=== PATIENT | male | born 1950 | race Caucasian/White ===

== ENCOUNTER 2017-06-05 12:08 | Inpatient (IN) | payer OTHER ==
[~2017-06-05] VITALS: Ht 182.9 cm; Wt 95.3 kg
--- NOTE | ~2017-06-05 | HC ---
[facility] [place] [address] CONSULTATION Name: MIREILLE LEES Room #: 402-P [facility] IN .R.#: [id number] Admission: 06/05/17 Attend Phys: Hilda Hernandez Discharge: 06/07/17 Date of : 52 Report #: [id number] THIS REPORT FOR: //name// CC: BENY physician/PCP Hilda Hernandez DATE OF SERVICE: 06/05/2017 DATE OF ADMISSION: 06/05/2017 DATE OF CONSULTATION: 06/05/2017. I have been asked to evaluate this 67-year-old male who presented to Emergency Department with chief complaint of abdominal pain. HISTORY OF PRESENT ILLNESS: The patient's pain began around 02:00 this a.m. when he was coming home from work at [employer]. His pain was located in the right upper quadrant as well as the right lower quadrant and reported that his last bowel movement was approximately 2 days ago. He normally has stools on a daily basis. He denied any melena or hematochezia. The pain seems to radiate to his right infrascapular region to some degree. PAST MEDICAL HISTORY: Is significant for hypertension, renolithiasis. PAST SURGICAL HISTORY: He has had surgical history of laminectomy in 1983. MEDICATIONS: Losartan daily basis for his hypertension. ALLERGIES: No known drug allergies. 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 REVIEW OF SYSTEMS: A 10-point review of systems essentially noncontributory except for recent change in gastrointestinal function with the abdominal pain and obstipation. PHYSICAL EXAMINATION: GENERAL: Reveals a man who is alert, cooperative. IV is infusing. VITAL SIGNS: Within normal limits. He is afebrile. HEENT: No scleral icterus is noted. CARDIOVASCULAR: Regular rate and rhythm. LUNGS: Clear to bases bilaterally. ABDOMEN: Obese, mild tenderness in right upper quadrant. No palpable mass. EXTREMITIES: Unremarkable. [facility] [address] [place] [address] CONSULTATION Name: HARILuis AlbertoMIREILLE Room #: 402-P [facility] IN M.R.#: [id number] Admission: 06/05/17 Attend Phys: Hilda Hernandez Discharge: 06/07/17 Date of : 52 Report #: [id number] NEUROLOGIC: He is oriented x 3 with bilateral motor symmetry. DIAGNOSTIC IMPRESSION: The patient has slightly acute cholecystitis with cholelithiasis. Recommend ultrasound of the gallbladder and will proceed with laparoscopic cholecystectomy and intraoperative cholangiogram as indicated. Thank you for allowing us to participate in his care. By: 1445 51 Tony Quiroga MD, FACS /nt
--- NOTE | ~2017-06-05 | O ---
[facility] [place] [address] OPERATIVE REPORT Name: MIREILLE LEES Room #: 402-P [facility] IN M.R.#: [id number] Admission: 06/05/17 Attend Phys: Hilda Hernandez Discharge: 06/07/17 Date of : 52 Report #: [id number] THIS REPORT FOR: //name// CC: BENY physician/PCP Hilda Hernandez DATE OF SERVICE: 06/06/2017 PREOPERATIVE DIAGNOSES: 1. Acute cholecystitis with cholelithiasis. 2. Incarcerated umbilical hernia. POSTOPERATIVE DIAGNOSES: 1. Acute cholecystitis with cholelithiasis. 2. Incarcerated umbilical hernia. OPERATIVE PROCEDURE: 1. Laparoscopic cholecystectomy with intraoperative cholangiogram (IOC). 2. Primary repair of incarcerated umbilical hernia. SURGEON: Tony Quiroga MD. SENIOR SOFTWARE ENGINEER: Elina Luna APRN. SECOND TRANSPORTER RADIOLOGY: Adalberto Izaguirre MS3. INDICATIONS: A 67-year-old male with approximately 3 days of right upper quadrant pain associated with nausea and vomiting. Ultrasound is positive for cholelithiasis. Liver function tests are essentially within normal limits. The patient has tenderness in right upper quadrant. OPERATIVE PROCEDURE: The patient had thorough discussion of the procedure, benefits and risks. He gave informed consent to proceed. He was brought to the operating room suite and had satisfactory induction of general endotracheal anesthesia. The patient's entire abdomen was prepped and draped in usual sterile procedure with DuraPrep solution. After draping was completed, an appropriate timeout was then performed. 0.5% plain Naropin was utilized at the umbilicus and open cutdown technique was performed. A small incision was made in the fascia. The 5 mm trocar was introduced. Pneumoperitoneum was established. An upper 5 mm trocar port was then placed. The 5 mm trocar at the umbilicus was converted to a 12 mm Lina with the balloon. Two additional right lateral subcostal and right lateral 5 mm trocar ports were then placed under direct vision. The gallbladder had some exudate on the surface. The omentum was tightly adherent to it. The Topel needle was utilized to aspirate approximately 70 mL of a dark brown bile. Some of this was sent for aerobic and anaerobic cultures. The gallbladder was then grasped and retracted cephalad and [facility] [address] [place] [address] OPERATIVE REPORT Name: MIREILLE LEES Room #: 402-P [facility] IN [facility].#: [id number] Admission: 06/05/17 Attend Phys: Hilda Hernandez Discharge: 06/07/17 Date of : 52 Report #: [id number] laterally. The cystic duct triangle was clearly delineated. The cystic duct was milked in a retrograde manner. A cystotomy was performed. The taut catheter was inserted. An intraoperative cholangiogram demonstrated free flow of contrast into the duodenum without filling defect. The proximal hepatic bile ducts, common hepatic duct and a right and left hepatic ducts were well visualized. The taut catheter was removed. The cystic duct was then triply ligated and divided with the Sonicision. The cystic artery was identified, doubly ligated and divided with Sonicision. The gallbladder was resected from the fossa without difficulty. It was then placed into an Endobag and removed from peritoneal cavity. Attention was turned back to the gallbladder fossa. Hemostasis was complete. Chris was placed and sprayed into the bed of the gallbladder. A 15-Chilean YULI drain was brought out through the far lateral port site. The upper midline 5 mm trocar was maintained. The umbilical hernia had been entered at the time of incision through the hernia sac and the incarcerated omentum had been reduced. Some of the hernia sac and contents were sent for histologic evaluation. Under direct open exposure, the fascial approximation with #1 PDS sutures was performed, 5 of these were placed. These were then ligated in place. Inspection with the 5 mm upper midline trocar port and the camera demonstrated satisfactory placement. No bowel was adherent. Photographs were taken and made part of the medical record. The pneumoperitoneum was then deflated and the upper 5 mm trocar port was removed. The skin margins were approximated with subcuticular 4-0 Monocryl and rachel. The skin margins at the umbilical hernia repair were approximated with rachel. The right upper quadrant drain was sewn in place with 2-0 nylon. The estimated blood loss approximately 25 mL. The patient tolerated the procedure well and he returned to recovery room in stable and satisfactory condition. <ELECTRONICALLY SIGNED> By: Tony Quiroga MD, FACS 06/11/17 0948 1127 1247 Tony Quiroga MD, FACS /nt
--- NOTE | ~2017-06-05 | S ---
[facility] [place] [address] SURGICAL PATH RPT PROCEDURE Name: MIREILLE WU Jesus Manuel Room #: 402-P DIS IN M.R.#: [id number] Admission: 06/05/17 Date of : 52 Discharge: 06/07/17 Report #: [id number] Path Case #: [id number] PATHOLOGY REPORT COLLECTION DATE: 06/06/2017 RECEIVED DATE: 06/06/2017 SUBMITTING PHYS: Dr. Tony Quiroga OTHER PHYS: Dr. Hilda Hernandez SPECIMEN(S) RECEIVED: A.Incarcerated hernia contents B.Gallbladder * * * * * * * * * * * * FINAL DIAGNOSIS: A. "Incarcerated hernia contents", hernia repair: - Vascularized fibroadipose connective tissue consistent with hernia sac. B. "Gallbladder", cholecystectomy: - Acute necrotizing cholecystitis. - Cholelithiasis. (CLW:cristina; 06/07/2017) PATHOLOGIST: Denisha Huber M.D. REPORT ELECTRONICALLY SIGNED BY: Denisha Huber M.D. DATE/TIME: 06/07/2017 20:29 * * * * * * * * * * * * GROSS PATHOLOGY: A. Received in formalin labeled "Mireille Wu, incarcerated hernia contents," are multiple pieces of lobulated fibroadipose tissue measuring 3.2 x 2.5 x 0.4 cm in aggregate dimensions. Sectioning reveals homogeneous, bright yellow cut surfaces. Clinical Research Specialist sections are submitted in cassette A1. B. Received in formalin labeled "Mireille Wu, gallbladder," is a 8.5 x 4.2 x 1.8 cm, previously opened gallbladder with smooth, shiny, dark, pinkdark yellow serosal surfaces. The gallbladder is opened to show a greengraydark, pink, spongy, bile-stained mucosa and an average wall thickness of 0.3 cm. Calculi are present and no masses are noted grossly. Clinical Research Specialist sections from the body and fundus are submitted along with the proximal margin in cassette B1. ([facility]; 06/06/2017) CLINICAL HISTORY: Cholecystitis, cholelithiasis [address] [address] SURGICAL PATH RPT PROCEDURE Name: MIREILLE WU Room #: 402-P DIS IN M.R.#: [id number] Admission: 06/05/17 Date of : 52 Discharge: 06/07/17 Report #: [id number] Path Case #: [id number] INITIAL CPT CODE(S): A; 28512 B; 30729 Professional services performed by [facility] at [address], [place] [address] Technical services performed by [facility] at [address] [place] [address], [facility] [address], [place] [address]. [facility] [address] [place] [address] PHONE: [phone] DIRECTOR: Gurwinder Alex M.D. * * * END OF REPORT * * *
--- NOTE | ~2017-06-05 | EKG ---
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 : 1950 Requested By: Sindy Mckeon Order Number: [id number] MD: Jarrett Martinez Measurements Intervals [place] Rate: 83 P: 65 ID: 162 QRS: 7 QRSD: 99 T: 94 QT: 410 QTc: 482 Interpretive Statements Sinus rhythm Multiple premature complexes, vent & supraven Abnormal T, consider ischemia, lateral leads No previous ECG available for comparison Electronically Signed On 06-10-2017 21:40:18 CDT by Jarrett Martinez [email or web address] <ELECTRONICALLY SIGNED> By: Jarrett Martinez MD 06/10/17 2140 1224 1224 Jarrett Martinez MD /CATHERINE
[2017-06-05 12:11] VITALS: BP 139/111
[2017-06-05] MEDS ORDERED: COZAAR 25 MG TA25 M1 PO (12:28)
[2017-06-05 12:55] LABS: HEMOGLOBIN 17.5 gm/dL (14.0-18.0); MCH 29.4 pg (26.0-34.0); MCHC 33.6 g/dL (28.0-37.0); MCV 87.5 fL (80.0-100.0); PLATELET COUNT 247 thou/uL (150-400); RBC 5.94 mil/uL (4.50-6.00); RDW 14.4 % (10.5-14.5); WBC 17.5 thou/uL (4.0-11.0)
[2017-06-05 12:58] LABS: MANUAL DIFF YES
[2017-06-05 13:04] LABS: ANION GAP 10 mmol/L (7-16); BUN 18 mg/dL (7-18); CHLORIDE 99 mmol/L (98-107); CO2 28 mmol/L (21-32); CREATININE 1.2 mg/dL (0.7-1.3); GLUCOSE 110 mg/dL (74-106); POTASSIUM 3.9 mmol/L (3.5-5.1); SODIUM 137 mmol/L (136-145)
[2017-06-05 13:15] LABS: ABSOLUTE NEUTROPHILS 15.1 thou/uL (1.4-8.2); ALBUMIN 4.2 g/dL (3.4-5.0); ALKALINE PHOSPHATASE 83 U/L (46-116); DIRECT BILIRUBIN < 0.1 mg/dL (<0.1-0.3); PLATELET ESTIMATE NORMAL; SGOT 43 U/L (15-37); SGPT 34 U/L (30-65); TOTAL BILIRUBIN 0.6 mg/dL (<0.1-1.0); TOTAL CELL COUNT 100; TOTAL PROTEIN 8.7 g/dL (6.4-8.2); TROPONIN-I < 0.04 ng/mL (<0.04-0.07)
[2017-06-05 14:33] VITALS: BP 139/111
[2017-06-05 15:11] VITALS: BP 138/95
[2017-06-05 15:19] VITALS: BP 153/77
[2017-06-05 20:00] VITALS: BP 181/108
[2017-06-06] VITALS (8 sets, daily range): BP systolic 112–141; BP diastolic 57–75
[2017-06-06 05:53] LABS: HEMATOCRIT 47.4 % (42.0-52.0); MCH 29.5 pg (26.0-34.0); MCHC 33.8 g/dL (28.0-37.0); MCV 87.2 fL (80.0-100.0); RBC 5.43 mil/uL (4.50-6.00); RDW 14.1 % (10.5-14.5); WBC 14.3 thou/uL (4.0-11.0)
[2017-06-06 06:06] LABS: ALBUMIN 3.2 g/dL (3.4-5.0); CALCIUM 8.3 mg/dL (8.5-10.1); CREATININE 0.9 mg/dL (0.7-1.3); TOTAL BILIRUBIN 1.1 mg/dL (<0.1-1.0); TOTAL PROTEIN 7.2 g/dL (6.4-8.2)
[2017-06-07] VITALS: BP 109/64
[2017-06-07 04:05] LABS: ALBUMIN 2.5 g/dL (3.4-5.0); CALCIUM 7.3 mg/dL (8.5-10.1); CREATININE 1.6 mg/dL (0.7-1.3); POTASSIUM 3.6 mmol/L (3.5-5.1); TOTAL BILIRUBIN 0.6 mg/dL (<0.1-1.0); TOTAL PROTEIN 6.3 g/dL (6.4-8.2)
[2017-06-07 04:34] VITALS: BP 111/45
[2017-06-07 07:05] VITALS: BP 131/79
[2017-06-07] MEDS ORDERED: TRAMADOL 50 MG50 MG PO (09:40)
[2017-06-07 12:59] VITALS: BP 131/79
== END 2017-06-07 15:16 | disposition home or self-care (01) | DRG 414 ==
LOC: ER 12:08 → EROBS 14:08 → 4N 14:08
PROVIDERS: Emergency Medicine; Surgery
PROC: 0FJ44ZZ Inspection of Gallbladder, Percutaneous Endoscopic Approach (ICD-10-PCS; principal; 2017-06-06)
PROC: BF121ZZ Fluoroscopy of Gallbladder using Low Osmolar Contrast (ICD-10-PCS; principal; 2017-06-06)
PROC: 0FT40ZZ Resection of Gallbladder, Open Approach (ICD-10-PCS; principal; 2017-06-06)
PROC: 0WQF4ZZ Repair Abdominal Wall, Percutaneous Endoscopic Approach (ICD-10-PCS; principal; 2017-06-06)
DX: K80.00 Calculus of gallbladder with acute cholecystitis without obstruction (principal); E43 Unspecified severe protein-calorie malnutrition; I10 Essential (primary) hypertension; F17.210 Nicotine dependence, cigarettes, uncomplicated; D72.829 Elevated white blood cell count, unspecified; Z60.2 Problems related to living alone; K40.90 Unilateral inguinal hernia, without obstruction or gangrene, not specified as recurrent; K42.9 Umbilical hernia without obstruction or gangrene; F12.90 Cannabis use, unspecified, uncomplicated; Z87.442 Personal history of urinary calculi; Z79.899 Other long term (current) drug therapy
CPT/HCPCS: 10091; 50010; 50101; 50249; 50411; 50555; 50900; 50962; 51412; 51489; 51975; 52265; 52287; 53307; 53314; 54022; 54118; 55245; 55317; 56462; 56525; 56526; 56527; 56970; 62110; 62900; 70005

== ENCOUNTER → 2018-05-20 | Outpatient (CLI) | payer OTHER ==
[~2018-05-20] MED LIST: COZAAR 25 MG TA25 M1 PO; TRAMADOL 50 MG50 MG PO
== END ==
LOC: RAD 11:30
DX: J98.11 Atelectasis (principal)

== ENCOUNTER 2018-08-08 05:23 | Day surgery (SDC) | payer OTHER ==
[2018-08-05 10:32] LABS: HEMATOCRIT 47.7 % (42.0-52.0); HEMOGLOBIN 16.2 gm/dL (14.0-18.0); MCH 29.7 pg (26.0-34.0); MCV 87.2 fL (80.0-100.0); RBC 5.47 mil/uL (4.50-6.00); RDW 14.3 % (10.5-14.5); WBC 8.3 thou/uL (4.0-11.0)
[2018-08-05 10:47] LABS: ALBUMIN 3.6 g/dL (3.4-5.0); CALCIUM 8.5 mg/dL (8.5-10.1); POTASSIUM 4.2 mmol/L (3.5-5.1); TOTAL BILIRUBIN 0.5 mg/dL (<0.1-1.0); TOTAL PROTEIN 7.1 g/dL (6.4-8.2)
[~2018-08-08] VITALS: Ht 188 cm; Wt 99.8 kg
--- NOTE | ~2018-08-08 | O ---
[facility] [place] [address] OPERATIVE REPORT Name: MIREILLE LEES Room #: [facility]#: [id number] Admission: 08/08/18 Attend Phys: Mich [place] MD, F Discharge: 08/08/18 Date of : 51 Report #: [id number] THIS REPORT FOR: //name// CC: Je Mims MD [facility] Armando [place] MD DATE OF SERVICE: 08/08/2018 SURGEON: Mich [place] MD. STUDENT ACCOUNTS MANAGER: BONY Burt. PREOPERATIVE DIAGNOSES: 1. Bilateral inguinal hernias. 2. Recurrent umbilical hernia. 3. Chronic obstructive pulmonary disease. 4. Hypertension. 5. Hyperlipidemia. POSTOPERATIVE DIAGNOSES: 1. Left pantaloon inguinal hernia, right indirect inguinal hernia.. 2. Incarcerated umbilical hernia. 3. Chronic obstructive pulmonary disease. 4. Hypertension. 5. Hyperlipidemia. PROCEDURE: 1. Laparoscopic totally extraperitoneal repair of left inguinal hernia with ProGrip mesh. 2. Laparoscopic totally extraperitoneal repair of right inguinal hernia with ProGrip mesh. 3. Open repair of recurrent incarcerated umbilical hernia. ANESTHESIA: General endotracheal anesthesia and local anesthetic. ESTIMATED BLOOD LOSS: 5 mL. SPECIMEN: None. COMPLICATIONS: None appreciated. INDICATIONS FOR PROCEDURE: This is a 68-year-old male patient of Dr. Armando Baltazar, who has had a left groin bulge over the past 2 or more years, increasing in size. The patient has gained weight and notices this furthermore, [facility] [address] [place] [address] OPERATIVE REPORT Name: MIREILLE LEES Room #: DEP [facility].#: [id number] Admission: 08/08/18 Attend Phys: Mich [place] MD, F Discharge: 08/08/18 Date of : 51 Report #: [id number] after having undergone a cholecystectomy. He denies change in his bowel habit. His hernia was laparoscopically visualized in 05/2017 when he underwent laparoscopic cholecystectomy and a primary repair of his umbilical hernia. The patient does have hypertension and COPD. He underwent a cardiac catheterization by Dr. Paulo Mims, but did not require intervention. He also had bilateral lower extremity stents placed by Dr. Je Restrepo in early May and has been on Plavix since that time. The patient presents now for laparoscopic bilateral inguinal hernia repair and repair of his recurrent umbilical hernia. DESCRIPTION OF PROCEDURE IN DETAIL: After the risks, benefits and expectations of the operation were discussed in detail with the patient, informed consent was obtained. The patient was identified in the preoperative holding area. He was given IV antibiotics as documented in the chart in line with SCIP metrics. The patient was then taken to the operating room, and he was placed in the supine position. SCDs were placed on the patient's bilateral lower extremities and pneumatic compression was initiated. The patient was then given IV sedation, and he was intubated without incident. His abdomen, groins and genitalia were prepped and draped in the standard sterile fashion. A time-out was performed to identify the correct patient and procedure. Local anesthetic was infiltrated into the skin and subcutaneous tissue infraumbilically where a curvilinear incision was made with #15 blade scalpel. Dissection was carried down to the left anterior rectus sheath fascia. A small transverse fascial opening was created. The underlying left rectus abdominis muscle was then swept laterally, and the Spacemaker port was placed within the preperitoneal space. The obturator was then removed and the Spacemaker balloon was inflated under direct visualization with a 0-degree angled laparoscope. The balloon was then deflated and removed. The cuff was inflated. The 10 mm 30-degree angled laparoscope was inserted after insufflating the preperitoneal space to 15 mmHg with carbon dioxide. The patient was placed in the Trendelenburg position. A lower midline 5 mm ports x 2 were placed under direct visualization after local anesthetic was infiltrated into the skin and subcutaneous tissue and appropriately sized transverse incisions were made. Exploration of the left preperitoneal space was undertaken first. The landmarks were identified including the inferior epigastric vessels and spermatic cord. The cord was protected throughout the operation. There was brisk bleeding from the inferior epigastric vessels that required Hemoclips for hemostasis. After ensuring this, the peritoneum was dissected off the lateral abdominal and pelvic side wall with appropriate traction and electrocautery. Dissection was then carried out to identify the hernia sac extending up into the indirect inguinal defect. This was dissected out of the defect without difficulty. Tissue also extended up into a direct defect. The tissue was reduced from the defect to identify both the direct and indirect defects (pantaloon hernia). The pubic tubercle had been dissected as well. The ProGrip mesh was then tailored on the backtable, rolled and placed within the preperitoneal space through the [facility] [address] [place] [address] OPERATIVE REPORT Name: MIREILLE LEES [facility] [id number] Admission: 08/08/18 Attend Phys: [place] MD, F Discharge: 08/08/18 Date of : 52 Report #: [id number] Spacemaker port. The mesh was unrolled in a scroll down fashion with the adherent side against the abdominal wall. There was good coverage of both defects with good fascial overlap and good medialization of the mesh whereby the mesh extended to the midline. There was minimal rippling of the mesh. Exploration of the right preperitoneal space was undertaken next in a similar fashion. The inferior epigastric vessels and spermatic cord were identified. The cord was isolated and protected. The peritoneum was dissected off the lateral abdominal and pelvic side wall with electrocautery. A rent was created in the very thin peritoneum, and the Hemoclips were placed for closure to protect the bowels from the mesh that would be placed. The peritoneum/hernia sac extended up into an indirect defect. This was dissected free while protecting the spermatic cord. After fully reducing the contents of the indirect inguinal hernia, the ProGrip mesh was tailored on the backtable, then rolled and placed within the preperitoneal space through the Spacemaker port. The mesh was unrolled in a scroll down fashion with the adherent side against the abdominal wall and good coverage of the defect. There was no significant rippling of the mesh. The patient did require placement of a right abdominal 5 mm Visiport intraoperatively to decrease the intraperitoneal insufflation that lessened visualization until after its placement. More working space and better visualization allowed for good placement of the mesh. The preperitoneal space was then desufflated, and the ports were removed. The abdominal cavity was desufflated, and the 5 mm port was removed after appropriate desufflation. Repair of the incarcerated recurrent umbilical hernia was undertaken next. The umbilical stalk was dissected off the fascia. The defect was then evident. The preperitoneal fat was incarcerated within the defect with no bowel involvement. The content was reduced, and the fascial edges were closed with [id number] 0 PDS sutures x 2. [id number] 0 PDS sutures x 2 were also used to close the left anterior rectus sheath fascia. Local anesthetic was infiltrated into the tissue. The wounds were then closed with interrupted subcuticular 4-0 Monocryl sutures and Dermabond. The patient tolerated the procedure well. He was awakened, extubated and taken to recovery room in stable condition with no apparent intraoperative complications. <ELECTRONICALLY SIGNED> By: [place] MD, FACS 08/11/18 1017 0942 1052 [place] MD, FACS /nt
[~2018-08-08 05:23] MED LIST changes: +ASPIR 8181 MG PO; +AVAPRO75 MG PO; +LIPITOR 20 MG T20 M1 PO; +PLAVIX 75 MG TA75 M1 PO; +SPIRIVA INH
[2018-08-08 06:59] VITALS: BP 173/99
[2018-08-08] MEDS ORDERED: NORCO 5-325 TA1 EACH PO (09:27)
[2018-08-08] MEDS ORDERED: SENNA-S TABLET1 EACH PO (09:27)
[2018-08-08] MEDS ORDERED: NEURONTIN 300M300 M2 PO (09:27)
[2018-08-08 09:41] VITALS: BP 173/99
== END 2018-08-08 10:40 | disposition home or self-care (01) ==
LOC: TBA 05:23 → OR 05:23
PROVIDERS: Surgery
DX: K40.20 Bilateral inguinal hernia, without obstruction or gangrene, not specified as recurrent (principal); K42.0 Umbilical hernia with obstruction, without gangrene; I10 Essential (primary) hypertension; J44.9 Chronic obstructive pulmonary disease, unspecified; E78.5 Hyperlipidemia, unspecified; I73.9 Peripheral vascular disease, unspecified; F17.210 Nicotine dependence, cigarettes, uncomplicated; Z98.890 Other specified postprocedural states; Z79.899 Other long term (current) drug therapy; Z87.442 Personal history of urinary calculi; Z88.0 Allergy status to penicillin; Z87.19 Personal history of other diseases of the digestive system; Z88.8 Allergy status to other drugs, medicaments and biological substances; Z79.82 Long term (current) use of aspirin
CPT/HCPCS: 50010; 50101; 50249; 50411; 50455; 50555; 50944; 51824; 52265; 52266; 54118; 54169; 55245; 56525; 56526; 62110; 62900; 70005

== ENCOUNTER 2020-11-11 10:44 | Emergency (ER) | payer OTHER ==
[~2020-11-11] VITALS: Ht 185.4 cm; Wt 99.8 kg
[~2020-11-11 10:44] MED LIST changes: +NEURONTIN 300M300 M2 PO; +NORCO 5-325 TA1 EACH PO; +SENNA-S TABLET1 EACH PO
[2020-11-11] MEDS ORDERED: FLEXERIL PO (11:49)
[2020-11-11 12:10] VITALS: BP 162/90
== END 2020-11-11 12:10 | disposition home or self-care (01) ==
LOC: ER 10:44
DX: M54.6 Pain in thoracic spine (principal); F17.210 Nicotine dependence, cigarettes, uncomplicated; I10 Essential (primary) hypertension; Z88.0 Allergy status to penicillin; Z79.899 Other long term (current) drug therapy; Z79.82 Long term (current) use of aspirin; Z87.442 Personal history of urinary calculi

== ENCOUNTER → 2021-01-07 | Outpatient (CLI) | payer OTHER ==
[~2021-01-07] MED LIST changes: +FLEXERIL PO
== END ==
LOC: MRI 11-26 10:24
PROVIDERS: ATTEND Family Medicine
DX: M47.22 Other spondylosis with radiculopathy, cervical region (principal); M25.78 Osteophyte, vertebrae; M48.02 Spinal stenosis, cervical region; M53.82 Other specified dorsopathies, cervical region

== ENCOUNTER 2021-03-03 08:35 | Emergency (ER) | payer OTHER ==
[~2021-03-03] VITALS: Ht 185.4 cm; Wt 99.8 kg
[2021-03-03 08:42] VITALS: BP 102/75
[2021-03-03] MEDS ORDERED: TRAMADOL 50 MG50 MG PO ×2 (08:55→09:07)
== END 2021-03-03 09:22 | disposition home or self-care (01) ==
LOC: ER 08:35
DX: G89.18 Other acute postprocedural pain (principal); I10 Essential (primary) hypertension; F17.210 Nicotine dependence, cigarettes, uncomplicated; Z88.0 Allergy status to penicillin; Z79.82 Long term (current) use of aspirin; Z79.899 Other long term (current) drug therapy; Z87.442 Personal history of urinary calculi; Z90.89 Acquired absence of other organs

== ENCOUNTER 2021-03-17 13:11 | Emergency (ER) | payer OTHER ==
[~2021-03-17] VITALS: Ht 188 cm; Wt 97.5 kg
[2021-03-17] MEDS ORDERED: ELIQUIS5 MG PO (16:22)
[2021-03-17 17:00] VITALS: BP 117/71
== END 2021-03-17 17:00 | disposition home or self-care (01) ==
LOC: ER 13:11
DX: I73.9 Peripheral vascular disease, unspecified (principal); F17.210 Nicotine dependence, cigarettes, uncomplicated; I10 Essential (primary) hypertension; Z87.442 Personal history of urinary calculi; Z98.890 Other specified postprocedural states; Z90.49 Acquired absence of other specified parts of digestive tract; Z88.0 Allergy status to penicillin

== ENCOUNTER 2021-04-01 14:43 | Emergency (ER) | payer OTHER ==
[~2021-04-01] VITALS: Ht 188 cm; Wt 96.6 kg
[~2021-04-01 14:43] MED LIST changes: +ELIQUIS5 MG PO
[2021-04-01 15:29] LABS: ABSOLUTE NEUTROPHILS 14.5 thou/uL (1.4-8.2); BASOPHILS 0.8 % (0.0-2.0); EOSINOPHILS 0.3 % (0.0-3.0); HEMOGLOBIN 14.5 gm/dL (14.0-18.0); LYMPHOCYTES 6.9 % (24.0-44.0); MCH 28.5 pg (26.0-34.0); MCHC 32.8 g/dL (28.0-37.0); MCV 86.8 fL (80.0-100.0); MONOCYTES 9.7 % (1.0-8.0); PLATELET COUNT 376 thou/uL (150-400); POLYS 82.3 % (36.0-66.0); RBC 5.07 mil/uL (4.50-6.00); RDW 15.1 % (10.5-14.5); WBC 17.6 thou/uL (4.0-11.0)
[2021-04-01 15:45] LABS: ANION GAP 9 mmol/L (7-16); BUN 15 mg/dL (7-18); CALCIUM 8.5 mg/dL (8.5-10.1); CHLORIDE 99 mmol/L (98-107); CO2 26 mmol/L (21-32); CREATININE 1.2 mg/dL (0.7-1.3); GLUCOSE 171 mg/dL (74-106); POTASSIUM 3.8 mmol/L (3.5-5.1); SODIUM 134 mmol/L (136-145)
[2021-04-01 15:48] LABS: SGOT 12 U/L (15-37); SGPT 20 U/L (16-63); TOTAL BILIRUBIN 0.7 mg/dL (0.2-1.0); TOTAL PROTEIN 7.1 g/dL (6.4-8.2); TROPONIN-I <0.06 ng/mL (<0.06)
[2021-04-01 16:56] LABS: BE(vivo) 0.7 mmol/L (-2 to +3); HCO3 25.9 mmol/L (22.0-26.0); PCO2 43.4 mmHg (35.0-45.0); PO2 62.7 mmHg (80.0-100.0); pH 7.394 (7.360-7.450); sO2 91.9 % (92.0-98.0)
[2021-04-01 17:20] LABS: URINE BILIRUBIN NEGATIVE (Negative); URINE BLOOD TRACE (Negative); URINE CLARITY CLEAR; URINE COLOR YELLOW; URINE GLUCOSE-RANDOM* NEGATIVE (Negative); URINE KETONES NEGATIVE (Negative); URINE LEUKOCYTES-REFLEX NEGATIVE (Negative); URINE NITRITE-REFLEX NEGATIVE (Negative); URINE PROTEIN (DIPSTICK) 2+ (Negative); URINE SPECIFIC GRAVITY 1.025 (1.005-1.035); URINE UROBILINOGEN 0.2 E.U./dl (0.2-1.0)
[2021-04-01] MEDS ORDERED: PROAIR HFA8.5 GM INH (18:44)
[2021-04-01] MEDS ORDERED: LEVOFLOXACIN750 MG PO (18:44)
[2021-04-01 19:04] LABS: CASTS None Seen /LPF (None Seen); CRYSTALS None Seen /LPF (None Seen); SQUAMOUS None Seen /LPF (0-3); URINE RBC None Seen /HPF (NONE SEEN); URINE WBC-REFLEX 0-5 Rare /HPF (0-5)
[2021-04-01 19:05] LABS: BACTERIA-REFLEX None Seen /HPF (None Seen)
[2021-04-01 19:18] VITALS: BP 144/74
== END 2021-04-01 19:19 | disposition left against medical advice (07) ==
LOC: ER 14:43
PROVIDERS: Emergency Medicine; Physician Assistant
DX: J44.1 Chronic obstructive pulmonary disease with (acute) exacerbation (principal); J96.00 Acute respiratory failure, unspecified whether with hypoxia or hypercapnia; R91.1 Solitary pulmonary nodule; I10 Essential (primary) hypertension; F17.210 Nicotine dependence, cigarettes, uncomplicated; Z87.442 Personal history of urinary calculi; Z86.718 Personal history of other venous thrombosis and embolism; Z79.82 Long term (current) use of aspirin; Z88.0 Allergy status to penicillin

== ENCOUNTER → 2021-05-10 | Outpatient (CLI) | payer OTHER ==
[~2021-05-10] VITALS: Ht 214 cm; Wt 96.6 kg
[~2021-05-10] MED LIST changes: +ADULT LOW DOSE81 MG PO; -ASPIR 8181 MG PO; +ESZOPICLONE2 MG PO; +IRBESARTAN-HCT1 EACH PO; +LEVOFLOXACIN750 MG PO; +METRONIDAZOLE500 M4 PO; +NORVASC5 MG PO; +PROAIR HFA8.5 GM INH
[2021-05-10 08:30] LABS: CALCIUM 8.3 mg/dL (8.5-10.1); CREATININE 1.2 mg/dL (0.7-1.3); POTASSIUM 3.8 mmol/L (3.5-5.1)
[2021-05-10 09:08] VITALS: BP 155/87
--- NOTE | 2021-05-10 11:38 | EKG ---
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: EDUARDO : 1950 Requested By: Trav Romero Order Number: [id number] MD: Monty Grier Measurements Intervals [place] Rate: 67 P: 74 HI: 185 QRS: 33 QRSD: 97 T: 83 QT: 434 QTc: 458 Interpretive Statements Sinus rhythm Compared to ECG 06/05/2017 12:24:48 T-wave abnormality no longer present Possible ischemia no longer present Electronically Signed On 05-10-2021 11:37:57 CDT by Monty Grier [email or web address] <ELECTRONICALLY SIGNED> By: Monty Grier MD, [facility] 05/10/21 1137 0810 9 Monty Grier MD, FACC /EPI
== END ==
LOC: CAT 07:23 → PUL 07:23 → OR 10:42 → EDSTATUS 13:51 → PUL 13:52
PROVIDERS: ATTEND Pediatrics
DX: J43.2 Centrilobular emphysema (principal); I25.10 Atherosclerotic heart disease of native coronary artery without angina pectoris; M43.22 Fusion of spine, cervical region; J98.11 Atelectasis; R91.1 Solitary pulmonary nodule

== ENCOUNTER 2021-06-11 20:01 | Inpatient (IN) | payer OTHER ==
[~2021-06-11] VITALS: Ht 167.6 cm; Wt 90.7 kg
[2021-06-11 20:02] VITALS: BP 151/80
[2021-06-11 20:28] LABS: ABSOLUTE NEUTROPHILS 12.5 thou/uL (1.4-8.2); BASOPHILS 0.2 % (0.0-2.0); EOSINOPHILS 0.1 % (0.0-3.0); HEMATOCRIT 44.8 % (42.0-52.0); HEMOGLOBIN 14.6 gm/dL (14.0-18.0); LYMPHOCYTES 5.5 % (24.0-44.0); MCHC 32.6 g/dL (28.0-37.0); MCV 85.8 fL (80.0-100.0); PLATELET COUNT 365 thou/uL (150-400); POLYS 86.2 % (36.0-66.0); RBC 5.22 mil/uL (4.50-6.00); RDW 17.4 % (10.5-14.5); WBC 14.5 thou/uL (4.0-11.0)
[2021-06-11 20:43] LABS: ANION GAP 9 mmol/L (7-16); BUN 22 mg/dL (7-18); CALCIUM 7.9 mg/dL (8.5-10.1); CHLORIDE 99 mmol/L (98-107); CO2 29 mmol/L (21-32); CREATININE 1.2 mg/dL (0.7-1.3); GLUCOSE 291 mg/dL (74-106); POTASSIUM 3.5 mmol/L (3.5-5.1); SODIUM 137 mmol/L (136-145)
[2021-06-11 20:48] LABS: ALBUMIN 2.5 g/dL (3.4-5.0); SGOT 14 U/L (15-37); SGPT 18 U/L (30-65); TOTAL BILIRUBIN 0.5 mg/dL (0.2-1.0); TOTAL PROTEIN 7.2 g/dL (6.4-8.2); TROPONIN-I <0.06 ng/mL (<0.06)
[2021-06-12 06:47] VITALS: BP 133/77
--- NOTE | 2021-06-12 07:07 | NUR ---
TOOK OVER CARE FROM JENIFFER SALEH AT THIS TIME
--- NOTE | 2021-06-12 09:32 | EKG ---
[address] [place] [address] ELECTROCARDIOGRAM REPORT Name: MIREILLE LEES Room #: 170-10 ADM IN M.R.#: [id number] Admission: 06/11/21 Attend Phys: Armando Baltazar MD Discharge: Date of : 52 Report #: [id number] [facility] ED Test Date: 2021-06-11 Test Time: 20:26:49 Pat Name: MIREILLE LEES Department: Room: 170 Gender: M [employer]e Former: jim : 1950 Requested By: Je Ribeiro Order Number: [id number] MD: Ramiro Samuel Measurements Intervals [place] Rate: 100 P: 83 MD: 164 QRS: 75 QRSD: 92 T: 92 QT: 350 QTc: 452 Interpretive Statements Sinus tachycardia Multiple premature complexes, vent & supraven Minimal ST depression, inferior leads Compared to ECG 05/10/2021 08:10:24 ST (T wave) deviation now present Sinus rhythm no longer present Electronically Signed On 06-12-2021 9:31:57 CDT by Ramiro Samuel [email or web address] <ELECTRONICALLY SIGNED> By: Ramiro Samuel MD 06/12/21 0931 25 25 Ramiro Samuel MD /CATHERINE
[2021-06-12 14:12] VITALS: BP 134/86
[2021-06-12 18:01] VITALS: BP 125/68
--- NOTE | 2021-06-12 19:04 | NUR ---
REPORT GIVEN TO JENIFFER SALEH AT THIS TIME
[2021-06-12 19:33] VITALS: BP 134/82
--- NOTE | 2021-06-13 03:07 | NUR ---
PT ARRIVED TO ROOM 356 AT SHIFT CHANGE. PT IS ALERT AND ORIENT TIMES FOUR YET FORGETFUL AT TIMES. VSS, AFEBRILE. SR WITH OCCASSIONAL PVC'S. UP AD TORO TO BR. PT CAME FROM HOME AND WAS VACCINATED FOR COVID, TEST POSITIVE. CURRENTLY ON 5 LITERS OF OXYGEN PER NC. SKIN NEGATIVE. DID REQUEST A PRN AMBIEN FOR SLEEP. SLOW PROGRESS TOWARDS DC GOALS. WILL CONTINUE TO MONITOR.
[2021-06-13 04:22] VITALS: BP 154/71
[2021-06-13 04:56] LABS: HEMATOCRIT 42.8 % (42.0-52.0); HEMOGLOBIN 14.2 gm/dL (14.0-18.0); MCH 28.6 pg (26.0-34.0); MCHC 33.2 g/dL (28.0-37.0); MCV 86.3 fL (80.0-100.0); RBC 4.97 mil/uL (4.50-6.00); RDW 17.4 % (10.5-14.5); WBC 13.1 thou/uL (4.0-11.0)
[2021-06-13 05:24] LABS: ALBUMIN 2.3 g/dL (3.4-5.0); ANION GAP 5 mmol/L (7-16); BUN 31 mg/dL (7-18); CALCIUM 8.3 mg/dL (8.5-10.1); CHLORIDE 104 mmol/L (98-107); CO2 33 mmol/L (21-32); CREATININE 1.1 mg/dL (0.7-1.3); DIRECT BILIRUBIN < 0.1 mg/dL (<0.1-0.2); GLUCOSE 153 mg/dL (74-106); PHOSPHORUS 4.1 mg/dL (2.6-4.7); POTASSIUM 3.9 mmol/L (3.5-5.1); SGOT 13 U/L (15-37); SGPT 15 U/L (16-63); SODIUM 142 mmol/L (136-145); TOTAL BILIRUBIN 0.1 mg/dL (0.2-1.0)
[2021-06-13 07:13] VITALS: BP 141/84
[2021-06-13 15:48] VITALS: BP 143/83
--- NOTE | 2021-06-13 16:06 | NUR ---
INITIAL ASSESSMENT: SW reviewed chart and spoke with nursing and attending physician. Pt was admitted from home due to COVID/hypoxia. Pt placed in Enhanced Isolation. Pt received a COVID vaccine. Pt is afebrile and on 5L of O2. Pt is on IV abx, IV steroids and Remdesivir. SW spoke with pt via phone. Introduced role of SW. Pt states he lives at home. Pt has a lady who is staying with him and she has children who stay in the home a few days a week. Prior to admission, pt was independent with ADLs. No use of DME for ambulation. No stairs to navigate. Pt does have home O2 in place through [employer]. Pt states he is not sure of his home liter flow. No hx of HH services or post-acute placement. Pt's PCP is Dr. Baltazar. Pt states he would be agreeable with HH if needed. Pt states he had a laminectomy at [facility] in October and needs an xray to sent to his neurosurgeon's office for review. Pt asked if he could have the xray done while in the hospital. SW explained that if it is not medically necessary, then it would need to be done as an outpatient. SW did communicate this request to attending physician. Plan is for pt to discharge home when medically stable. LEVI is following to assist as needed with discharge planning.
--- NOTE | 2021-06-13 18:29 | NUR ---
ASSUMED PATIENT CARE AT 0700. A/O X4./ TOLERATED ON 5L/NC. SOLWLY TOWARDS POC GOALS.
[2021-06-13 20:43] VITALS: BP 145/89
--- NOTE | 2021-06-14 00:49 | NUR ---
PT ALERT AND ORIENTED X4. VSS AFEBRILE. SATS 95% ON 5LNC. LUNGS SOUND DIMINSHED WITH WHEEZES. IV ABX ORDERED. NO C/O PAIN OR SOA. BED DPWN . CALL LIGT IN REACH. NO S/S DISTRESS PRESENTLY.
[2021-06-14 03:04] VITALS: BP 152/89
[2021-06-14 05:54] LABS: ALBUMIN 2.3 g/dL (3.4-5.0); ANION GAP 7 mmol/L (7-16); BUN 35 mg/dL (7-18); CALCIUM 7.9 mg/dL (8.5-10.1); CHLORIDE 105 mmol/L (98-107); CO2 30 mmol/L (21-32); DIRECT BILIRUBIN < 0.1 mg/dL (<0.1-0.2); GLUCOSE 158 mg/dL (74-106); PHOSPHORUS 3.7 mg/dL (2.5-4.9); POTASSIUM 4.5 mmol/L (3.5-5.1); SGOT 13 U/L (15-37); SGPT 18 U/L (30-65); SODIUM 142 mmol/L (136-145); TOTAL BILIRUBIN 0.1 mg/dL (0.2-1.0); TOTAL PROTEIN 6.5 g/dL (6.4-8.2)
--- NOTE | 2021-06-14 06:14 | NUR ---
PT PRGRESSING TOWARDS D/C GOALS. VSS AFEBRILE. UNLABORED ON 5LNC.O C/O PAIN. NO S/S DISTRESS.
[2021-06-14 07:33] VITALS: BP 155/98
--- NOTE | 2021-06-14 13:47 | NUR ---
CARE ASSUMED THIS AM, ALERT AND ORIENTED X4, DENIES CHEST PAIN, NAUSEA AND VOMITTING. ON 5L OXYGEN OF O2, SOB WITH EXERTION. PT USES OXYGEN AT HOME COUDLDNT TELL TELL ME HOW HOW MUCH . HAD A BMA ND A BATH TODAY. USES URINAL. FALL AND ENHANCED PREC. IN PLACE. WILL CONTINUE TO MONITOR
--- NOTE | 2021-06-14 14:03 | NUR ---
LEVI reviewed chart and spoke with nursing. Pt remains in Enhanced Isolation due to COVID. Pt is afebrile and on 5L of O2. Pt is on IV abx, IV steroids snd Remdesivir. LEVI placed call to pt's room. No answer. Pt is up ad héctor in his room. Plan is for pt to discharge home when medically stable. LEVI is following to assist as needed with discharge planning.
[2021-06-14 15:20] VITALS: BP 145/86
[2021-06-14 19:22] VITALS: BP 163/96
[2021-06-15 02:46] VITALS: BP 158/91
[2021-06-15 10:19] LABS: ALBUMIN 2.6 g/dL (3.4-5.0); ANION GAP 5 mmol/L (7-16); BUN 32 mg/dL (7-18); CALCIUM 7.9 mg/dL (8.5-10.1); CHLORIDE 105 mmol/L (98-107); CO2 34 mmol/L (21-32); CREATININE 0.9 mg/dL (0.7-1.3); DIRECT BILIRUBIN < 0.1 mg/dL (<0.1-0.2); GLUCOSE 131 mg/dL (74-106); PHOSPHORUS 3.7 mg/dL (2.5-4.9); POTASSIUM 4.5 mmol/L (3.5-5.1); SGOT 28 U/L (15-37); SGPT 38 U/L (30-65); SODIUM 144 mmol/L (136-145); TOTAL BILIRUBIN 0.2 mg/dL (0.2-1.0); TOTAL PROTEIN 6.5 g/dL (6.4-8.2)
[2021-06-15] MEDS ORDERED: PREDNISONE 10 M10 MG PO (11:22)
[2021-06-15] MEDS ORDERED: ZITHROMAX250 MG PO (11:22)
[2021-06-15 11:45] VITALS: BP 154/106
[2021-06-15 13:12] VITALS: BP 154/106
--- NOTE | 2021-06-15 13:44 | NUR ---
DISCHARGE NOTE: LEVI reviewed chart and spoke with nursing and attending physician. Pt remains in Enhanced Isolation due to COVID. Pt is medically stable to discharge home today after final dose of Remdesivir. Orders written for HH services. LEVI spoke with pt via phone to discuss discharge plan. Pt is agreeable with plan. LEVI confirmed pt's home address and phone number. HH providers discussed. No preference voiced. LEVI contacted [facility] who is not accepting COVID pts at this time. LEVI spoke with [facility], who states that they do not have any openings until next week. LEVI spoke with intake at [facility], who states they are able to accept pt's insurance and COVID pts. Start of care planned for Sunday, 06/18. LEVI discussed with attending physician about start date of HH services. Physician agreeable. LEVI spoke with pt to provide update and discuss transportation plan. Pt states he does not think he will have a ride home until late this evening. Pt agreeable with LEVI arranging a w/c van with O2 through [employer]. LEVI notified Director of Case Mgmt of transportation arrangements. Pt to be picked up at [facility] between [id number]. Contact info for HH placed in pt's discharge summary. LEVI updated pt's nurse. Pt has home O2 in place at home through . Rest/exercise oximetry ordered to determine if pt has higher O2 needs than prior to admission. No additional SW needs identified at this time, but is available to assist should needs arise.
[2021-06-15 16:02] VITALS: BP 153/85
[2021-06-15 16:30] VITALS: BP 154/106
== END 2021-06-15 17:41 | disposition home health service (06) | DRG 177 ==
LOC: ER 20:01 → 3W 21:21 → EROBS 21:21 → 3W 06-12 19:09
PROVIDERS: Emergency Medicine; ADMIT Family Medicine; ATTEND Family Medicine
PROC: XW033E5 Introduction of Remdesivir Anti-infective into Peripheral Vein, Percutaneous Approach, New Technology Group 5 (ICD-10-PCS; principal; 2021-06-11)
DX: U07.1 COVID-19 (principal); J96.00 Acute respiratory failure, unspecified whether with hypoxia or hypercapnia; R65.11 Systemic inflammatory response syndrome (SIRS) of non-infectious origin with acute organ dysfunction; J44.1 Chronic obstructive pulmonary disease with (acute) exacerbation; I10 Essential (primary) hypertension; R73.9 Hyperglycemia, unspecified; F17.210 Nicotine dependence, cigarettes, uncomplicated; E78.5 Hyperlipidemia, unspecified; I73.9 Peripheral vascular disease, unspecified; K08.409 Partial loss of teeth, unspecified cause, unspecified class; Z87.442 Personal history of urinary calculi; Z86.718 Personal history of other venous thrombosis and embolism; Z95.820 Peripheral vascular angioplasty status with implants and grafts; Z88.0 Allergy status to penicillin
CPT/HCPCS: 10879

== ENCOUNTER → 2021-07-01 | Outpatient (CLI) | payer OTHER ==
[~2021-07-01] MED LIST changes: +PREDNISONE 10 M10 MG PO; +ZITHROMAX250 MG PO
== END ==
LOC: RAD 10:52
DX: S14.126A Central cord syndrome at C6 level of cervical spinal cord, initial encounter (principal); X58.XXXA Exposure to other specified factors, initial encounter; Y93.89 Activity, other specified; Y92.89 Other specified places as the place of occurrence of the external cause; Y99.8 Other external cause status

== ENCOUNTER → 2021-09-05 | Outpatient (CLI) | payer OTHER ==
[2021-09-05 12:21] LABS: CREATININE 1.1 mg/dL (0.7-1.3)
== END ==
LOC: CAT 09:13 → LAB 11:10 → CAT 11:10
PROVIDERS: ATTEND Pediatrics
DX: I70.211 Atherosclerosis of native arteries of extremities with intermittent claudication, right leg (principal); K42.9 Umbilical hernia without obstruction or gangrene; R91.8 Other nonspecific abnormal finding of lung field; R91.1 Solitary pulmonary nodule; I71.4 Abdominal aortic aneurysm, without rupture